=== PATIENT | female | born 1965 | race Caucasian/White ===

== ENCOUNTER 2019-04-29 12:56 | Outpatient (CLI) | payer BC ==
--- NOTE | 2019-04-29 14:07 | MRI ---
MRI CERVICAL SPINE WITHOUT CONTRAST: 04/29/2019 HISTORY: Right shoulder pain, neck pain, cervical radiculopathy. COMPARISON: None. TECHNIQUE: Multiplanar multisequence MR imaging of the cervical spine is obtained without contrast. FINDINGS: The sagittal STIR imaging demonstrates no focal area of osseous marrow edema. No anterolisthesis or retrolisthesis is noted within the cervical spine. C2-3: No significant central canal or neural foraminal stenosis. C3-4: No significant central canal or neural foraminal stenosis. Mild bilateral facet hypertrophy, ri ght greater than left. C4-5: There is mild disc space narrowing with disc desiccation. There is mild disc bulge with a small central disc protrusion partially effacing the ventral thecal sac. No significant associated central canal stenosis. No significant neural foraminal stenosis on either side. C5-6: There is disc space narrowing and disc desiccation with a left paracentral annular tear and ass ociated disc protrusion. There is partial effacement of the ventral thecal sac on the left with a mild degree of left-sided central canal stenosis. Mild bilateral facet hypertrophy with no significan t neural foraminal stenosis. C6-7: No significant central canal or neural foraminal stenosis. C7-T1: No significant central canal or neural foraminal stenosis. The cervical cord demonstrates no focal area of abnormal signal intensity. IMPRESSION: Mild cervical spine degenerative change as detailed above, most significant finding being a left para central disc protrusion at C5-6 with mild associated left sided central canal stenosis. Transcribed Date/Time: 04/29/2019 2:15 PM
== END 2019-04-29 12:57 | disposition home or self-care (01) ==
LOC: TBSIIMAG 12:56
PROVIDERS: ATTEND Neurological Surgery
DX: M47.22 Other spondylosis with radiculopathy, cervical region (principal); M50.122 Cervical disc disorder at C5-C6 level with radiculopathy; M48.02 Spinal stenosis, cervical region
CPT/HCPCS: 72141